=== PATIENT | female | born 1975 | race Caucasian/White ===

== ENCOUNTER 2019-03-07 09:40 | Observation (INO) | payer OTHER ==
--- NOTE | 2019-03-07 10:01 | ER Document Report ---
ED Medical Screen (RME) - General Chief Complaint: Abnormal Lab Results Stated Complaint: ABNORMAL LABS Time Seen by Provider: 03/07/19 09:48 Mode of Arrival: Ambulatory Information source: Patient Notes: Patient presents complaining of low hemoglobin. Patient states she was at an urgent care yesterday and was told her hemoglobin was 5.9. Patient is currently on her menstrual cycle and does report heavy menses. Patient also reports dark stools and a previous history of bleeding ulcer although is uncertain exactly where the ulcer is located. Patient states that she had an EGD 2 years ago. Patient states that she does take daily BC powder for her pain symptoms. Patient does report occasional chest pain although denies any chest pain at this time. Patient does report some shortness of breath. I have greeted and performed a rapid initial assessment of this patient. A comprehensive ED assessment and evaluation of the patient, analysis of test results and completion of the medical decision making process will be conducted by additional ED providers. TRAVEL OUTSIDE OF THE [place] IN LAST 30 DAYS: No - Related Data Allergies/Adverse Reactions: nitrofurantoin [From Macrodantin] Allergy (Verified 03/07/19 09:45) Past Medical History - Social History Chew tobacco use (# tins/day): No Frequency of alcohol use: Social Drug Abuse: None Physical Exam - Vital signs Vitals: Temp Pulse Resp BP Pulse Ox 99.0 F 96 20 128/53 H 96 03/07/19 09:47 03/07/19 09:47 03/07/19 09:47 03/07/19 09:47 03/07/19 09:47 - General General appearance: Appears well, Alert Notes: Pale, respirations unlabored Course - Vital Signs Vital signs: Temp Pulse Resp BP Pulse Ox 99.0 F 96 20 128/53 H 96 03/07/19 09:47 03/07/19 09:47 03/07/19 09:47 03/07/19 09:47 03/07/19 09:47
[2019-03-07] MEDS ORDERED: NORMAL SALINE 1000 ML 1,000 ML IV ONE (10:24)
[2019-03-07] MEDS ORDERED: PANTOPRAZOLE SODIUM 40 MG VIAL IV ONE (10:25)
[2019-03-07 10:31] LABS: ABSOLUTE BASOPHILS # (AUTO) 0.1 10^3/uL (0.0-0.2); ABSOLUTE EOSINOPHILS # (AUTO) 0.2 10^3/uL (0.0-0.6); ABSOLUTE LYMPHOCYTES (AUTO) 1.3 10^3/uL (0.5-4.7); ABSOLUTE MONOCYTES (AUTO) 0.6 10^3/uL (0.1-1.4); ABSOLUTE NEUT (AUTO) 4.3 10^3/uL (1.7-8.2); BASOPHILS % (AUTO) 1.4 % (0-2); EOSINOPHILS % (AUTO) 2.5 % (0-6); HEMATOCRIT 19.9 % (36.0-47.0); LYMPHOCYTES % (AUTO) 20.4 % (13-45); MEAN CORPUSCULAR HEMOGLOBIN 16.4 pg (27.0-33.4); MEAN CORPUSCULAR HGB CONC 27.7 g/dL (32.0-36.0); MONOCYTES % (AUTO) 8.7 % (3-13); PLATELET COUNT 314 10^3/uL (150-450); RED BLOOD COUNT 3.37 10^6/uL (3.72-5.28); RED CELL DISTRIBUTION WIDTH 20.9 % (11.5-14.0); TOTAL CELLS COUNTED % (AUTO) 100 %; WHITE BLOOD COUNT 6.4 10^3/uL (4.0-10.5)
[2019-03-07 10:36] LABS: HEMOGLOBIN 5.5 g/dL (12.0-15.5)
[2019-03-07 10:39] LABS: INTERNATIONAL RATION (INR) 1.09; PROTHROMBIN TIME 14.1 SEC (11.4-15.4)
[2019-03-07 10:40] LABS: PARTIAL THROMBOPLASTIN TIME 29.9 SEC (23.5-35.8)
[2019-03-07 10:53] LABS: ALKALINE PHOSPHATASE 59 U/L (38-126); ANION GAP 8 (5-19); ASPARTATE AMINO TRANSFERASE 25 U/L (14-36); BILIRUBIN,DIRECT 0.1 mg/dL (0.0-0.4); BILIRUBIN,TOTAL 0.3 mg/dL (0.2-1.3); BLOOD UREA NITROGEN 11 mg/dL (7-20); CALCIUM 8.8 mg/dL (8.4-10.2); CARBON DIOXIDE 24 mmol/L (22-30); CHLORIDE 107 mmol/L (98-107); GLUCOSE 95 mg/dL (75-110); POTASSIUM 4.2 mmol/L (3.6-5.0); TOTAL PROTEIN 7.5 g/dL (6.3-8.2)
[2019-03-07 10:55] LABS: ANISOCYTOSIS 2+; PLATELET LARGE PRESENT; POIKILOCYTOSIS SLIGHT; POLYCHROMASIA SLIGHT; STOMATOCYTES SLIGHT; TEAR DROP CELLS SLIGHT
[2019-03-07 10:56] LABS: MEAN CORPUSCULAR VOLUME 59 fl (80-97); PLATELET COMMENT ADEQUATE
[2019-03-07] MEDS ORDERED: NORMAL SALINE 250 ML IV PRN (11:06)
[2019-03-07] MEDS ORDERED: ACETAMINOPHEN 325 MG TABLET PO ONE (11:42)
--- NOTE | 2019-03-07 12:02 | ER Document Report ---
ED General - General Chief Complaint: Abnormal Lab Results Stated Complaint: ABNORMAL LABS Time Seen by Provider: 03/07/19 09:48 Primary Care Provider: DEMI NICOLE MD [Primary Care Provider] - Follow up as needed Mode of Arrival: Ambulatory TRAVEL OUTSIDE OF THE [place] IN LAST 30 DAYS: No - HPI Notes: Patient presents complaining of weakness. His weakness is generalized. Is worse with exertion and better with rest. It does radiate throughout her body. She states she has a history of anemia and has had to be transfused in the past. Last time was 2 years ago. This was secondary to "bleeding ulcers". This was at another hospital. She states over the last several weeks she has been feeling weaker and she went to the urgent care. They obtained laboratories there and found her to have a hemoglobin of 5.9 today referred her here to the emergency department. She also states she has heavy menstrual cycles but does not take any medications for this. She states lately she is also noticed that her stools have been dark. No syncope or near syncope. The symptoms have been constant. They are moderate in intensity. - Related Data Allergies/Adverse Reactions: nitrofurantoin [From Macrodantin] Allergy (Verified 03/07/19 09:45) Past Medical History - General Information source: Patient - Social History Smoking Status: Current Every Day Smoker Chew tobacco use (# tins/day): No Frequency of alcohol use: Social Drug Abuse: None Family History: Reviewed & Not Pertinent Patient has suicidal ideation: No Patient has homicidal ideation: No Review of Systems - Review of Systems Constitutional: Malaise, Weakness Cardiovascular: denies: Chest pain, Palpitations Respiratory: denies: Cough, Short of breath Gastrointestinal: denies: Diarrhea, Vomiting -: Yes All other systems reviewed and negative Physical Exam - Vital signs Vitals: Temp Pulse Resp BP Pulse Ox 99.0 F 96 20 128/53 H 96 03/07/19 09:47 03/07/19 09:47 03/07/19 09:47 03/07/19 09:47 03/07/19 09:47 Interpretation: Normal - General General appearance: Appears well, Alert - HEENT Head: Normocephalic, Atraumatic Eyes: Normal Pupils: PERRL - Respiratory Respiratory status: No respiratory distress Chest status: Nontender Breath sounds: Normal Chest palpation: Normal - Cardiovascular Rhythm: Regular Heart sounds: Normal auscultation Murmur: No - Abdominal Inspection: Normal Distension: No distension Bowel sounds: Normal Tenderness: Nontender Organomegaly: No organomegaly - Rectal Stool: Heme negative - per nurse who performed in room - Back Back: Normal, Nontender - Extremities General upper extremity: Normal inspection, Nontender, Normal color, Normal ROM, Normal temperature General lower extremity: Normal inspection, Nontender, Normal color, Normal ROM, Normal temperature, Normal weight bearing. No: Antonio's sign - Neurological Neuro grossly intact: Yes Cognition: Normal Orientation: AAOx4 Newman Coma Scale Eye Opening: Spontaneous Newman Coma Scale Verbal: Oriented Iris Coma Scale Motor: Obeys Commands Iris Coma Scale Total: 15 Speech: Normal Motor strength normal: LUE, RUE, LLE, RLE Sensory: Normal - Psychological Associated symptoms: Normal affect, Normal mood - Skin Skin Temperature: Warm Skin Moisture: Dry Skin Color: Pale Course - Vital Signs Vital signs: Temp Pulse Resp BP Pulse Ox 98.4 F 96 20 128/53 H 100 03/07/19 11:47 03/07/19 09:47 03/07/19 09:47 03/07/19 09:47 03/07/19 10:25 - Laboratory Result Diagrams: 03/07/19 10:10 03/07/19 10:10 Laboratory results interpreted by me: 03/07/19 03/07/19 10:10 10:10 RBC 3.37 L Hgb 5.5 L Hct 19.9 L MCV 59 L MCH 16.4 L MCHC 27.7 L RDW 20.9 H Crossmatch See Detail - EKG Interpretation by Pa EKG shows normal: Sinus rhythm Rate: Normal - 86 Rhythm: NSR Chandler/QRS: No: Right axis deviation, Left axis deviation Discharge - Discharge Clinical Impression: Anemia Qualifiers: Anemia type: iron deficiency Iron deficiency anemia type: chronic blood loss Qualified Code(s): D50.0 - Iron deficiency anemia secondary to blood loss (chronic) Condition: Fair Disposition: ADMITTED INPATIENT Admitting Provider: Lucita (Hospitalist) - [facility] admission Unit Admitted: Medical Floor Referrals: DEMI NICOLE MD [Primary Care Provider] - Follow up as needed
[2019-03-07] MEDS ORDERED: ALBUTEROL SULFATE 0.083% NEB 2.5 MG/3 ML AMPUL NEB PRN (13:47)
[2019-03-07] MEDS ORDERED: ACETAMINOPHEN 325 MG TABLET PO PRN (13:47)
[2019-03-07] MEDS ORDERED: MAG HYDROX/AL HYDROX/SIMETH SUSP 30 ML UDCUP PO PRN (13:56)
--- NOTE | 2019-03-07 14:10 | RADIOLOGY REPORT (SQ) ---
EXAM DESCRIPTION: CHEST 2 VIEWS COMPLETED DATE/TIME: 03/07/2019 1:52 pm REASON FOR STUDY: sob COMPARISON: None. EXAM PARAMETERS: NUMBER OF VIEWS: two views TECHNIQUE: Digital Frontal and Lateral radiographic views of the chest acquired. RADIATION DOSE: NA LIMITATIONS: none FINDINGS: LUNGS AND PLEURA: No opacities, masses or pneumothorax. No pleural effusion. MEDIASTINUM AND HILAR STRUCTURES: No masses or contour abnormalities. HEART AND VASCULAR STRUCTURES: Heart normal size. No evidence for failure. BONES: No acute findings. HARDWARE: None in the chest. OTHER: No other significant finding. IMPRESSION: NO ACUTE RADIOGRAPHIC FINDING IN THE CHEST. TECHNICAL DOCUMENTATION: JOB ID: [id number] [employer]- All Rights Reserved Reading location - IP/workstation name: [email or web address]
[2019-03-07] MEDS: ONDANSETRON HCL INJ/PF 4 MG/2 ML SDV IV PRN ×2 (14:31→19:38)
[2019-03-07] MEDS ORDERED: BUTALB/ACETAMINOPHEN/CAFFEINE 1 TAB EACH PO PRN (17:18)
[2019-03-07] MEDS ORDERED: NICOTINE 21 MG/24 HR PATCH.TD24 TD PRN (17:21)
--- NOTE | 2019-03-07 17:28 | PDOC H&P ---
History of Present Illness Admission Date/PCP: 03/07/19 12:07 DEMI NICOLE MD Patient complains of: Abn lab result per PCP History of Present Illness: GASTON SUN is a 43 year old female with limited past medical history secondary to poor healthcare utilization but known to have GERD and tobacco dependence who presented from her primary care provider's office today with a report of abnormal laboratory evaluation. Evaluation in emergency department demonstrated stable vital signs, however, patient was found to have a hemoglobin of 5.5 (5.9 at PCPs office last week), unremarkable coags, chemistry, and negative occult stool. EKG demonstrated sinus rhythm and chest x-ray was benign. Patient reports that she has a new patient appointment with gastroenterology scheduled for 03/19. She does admit to frequent BC powder use. She is provided IV fluids and is ordered 2 units PRBC; referred to the hospitalist service for admission and management of the above-stated complaints and findings. Past Medical History Cardiac Medical History: Reports: None Pulmonary Medical History: Reports: None EENT Medical History: Reports: None Neurological Medical History: Reports: None Endocrine Medical History: Reports: None Renal/ Medical History: Reports: None Malignancy Medical History: Reports: None GI Medical History: Reports: Gastroesophageal Reflux Disease, Peptic Ulcer Disease Musculoskeltal Medical History: Reports: Arthritis Skin Medical History: Reports: None Psychiatric Medical History: Reports: Tobacco Dependency Traumatic Medical History: Reports: None Hematology: Reports: Anemia Infectious Medical History: Reports: None Past Surgical History Past Surgical History: Reports: None Social History Information Source: Patient Lives with: Spouse/Significant other Smoking Status: Current Every Day Smoker Cigarettes Packs Per Day: 1 Electronic Cigarette use?: No Frequency of Alcohol Use: Rare Hx Recreational Drug Use: No Drugs: None Hx Prescription Drug Abuse: No - Advance Directive Resuscitation Status: Full Code Surrogate healthcare decision maker:: The patient's significant other, Socorro Urban, Family History Family History: Reviewed & Not Pertinent Parental Family History Reviewed: Yes Children Family History Reviewed: Yes Sibling(s) Family History Reviewed.: Yes Medication/Allergy Home Medications: Aspirin/Caffeine [Bc Powder Packet] 1 pkt PO DAILY PRN 03/07/19 Fluticasone Propionate [Flonase Nasal Logan 50 Mcg/Logan 16 gm] 2 sprays NASL Q12 03/07/19 Omeprazole Magnesium [Prilosec Otc] 40 mg PO BID 03/07/19 Allergies/Adverse Reactions: nitrofurantoin [From Macrodantin] Allergy (Verified 03/07/19 09:45) Review of Systems Constitutional: PRESENT: fatigue, headache(s). ABSENT: chills, fever(s), weight gain, weight loss Eyes: ABSENT: visual disturbances Ears: ABSENT: hearing changes Cardiovascular: ABSENT: chest pain, dyspnea on exertion, edema, orthropnea, palpitations Respiratory: PRESENT: dyspnea. ABSENT: cough, hemoptysis Gastrointestinal: ABSENT: abdominal pain, constipation, diarrhea, hematemesis, hematochezia, nausea, vomiting Genitourinary: ABSENT: dysuria, hematuria Musculoskeletal: ABSENT: joint swelling Integumentary: ABSENT: rash, wounds Neurological: ABSENT: abnormal gait, abnormal speech, confusion, dizziness, fo shanique weakness, syncope Psychiatric: ABSENT: anxiety, depression, homidical ideation, suicidal ideation Endocrine: ABSENT: cold intolerance, heat intolerance, menstrual abnormalities, polydipsia, polyuria Hematologic/Lymphatic: ABSENT: easy bleeding, easy bruising Physical Exam Vital Signs: Temp Pulse Resp BP Pulse Ox 98.3 F 68 18 102/84 100 03/07/19 16:01 03/07/19 17:09 03/07/19 16:09 03/07/19 16:09 03/07/19 16:09 Intake & Output 03/06/19 03/07/19 03/08/19 06:59 06:59 06:59 Intake Total 1300 Balance 1300 Weight 66.9 kg General appearance: PRESENT: no acute distress, cooperative, well-developed, well-nourished Head exam: PRESENT: atraumatic, normocephalic Eye exam: PRESENT: conjunctiva pink, EOMI, PERRLA. ABSENT: scleral icterus Ear exam: PRESENT: normal external ear exam Mouth exam: PRESENT: moist, tongue midline Neck exam: ABSENT: carotid bruit, JVD, lymphadenopathy, thyromegaly Respiratory exam: PRESENT: clear to auscultation peg, symmetrical, unlabored. ABSENT: rales, rhonchi, wheezes Cardiovascular exam: PRESENT: RRR, +S1, +S2. ABSENT: diastolic murmur, rubs, systolic murmur Pulses: PRESENT: normal dorsalis pedis pul Vascular exam: PRESENT: normal capillary refill GI/Abdominal exam: PRESENT: normal bowel sounds, soft. ABSENT: distended, guarding, mass, organolmegaly, rebound, tenderness Rectal exam: PRESENT: heme (-) stool - Per ED provider Extremities exam: PRESENT: full ROM. ABSENT: calf tenderness, clubbing, pedal edema Neurological exam: PRESENT: alert, awake, oriented to person, oriented to place, oriented to time, oriented to situation, CN II-XII grossly intact. ABSENT: motor sensory deficit Psychiatric exam: PRESENT: appropriate affect, normal mood. ABSENT: homicidal ideation, suicidal ideation Skin exam: PRESENT: dry, intact, warm. ABSENT: cyanosis, rash Results Laboratory Results: 03/07/19 10:10 03/07/19 10:10 03/07/19 03/07/19 03/07/19 10:10 10:10 10:10 WBC 6.4 RBC 3.37 L Hgb 5.5 L Hct 19.9 L MCV 59 L MCH 16.4 L MCHC 27.7 L RDW 20.9 H Plt Count 314 Seg Neutrophils % 67.0 Sodium 139.1 Potassium 4.2 Chloride 107 Carbon Dioxide 24 Anion Gap 8 BUN 11 Creatinine 0.70 Est GFR ( Amer) > 60 Glucose 95 Calcium 8.8 Total Bilirubin 0.3 AST 25 Alkaline Phosphatase 59 Total Protein 7.5 Albumin 4.0 Lipase 151.9 Serum HCG, Qual NEGATIVE Blood Type Antibody Screen 03/07/19 10:10 WBC RBC Hgb Hct MCV MCH MCHC RDW Plt Count Seg Neutrophils % Sodium Potassium Chloride Carbon Dioxide Anion Gap BUN Creatinine Est GFR ( Amer) Glucose Calcium Total Bilirubin AST Alkaline Phosphatase Total Protein Albumin Lipase Serum HCG, Qual Blood Type A POSITIVE Antibody Screen NEGATIVE 03/07/19 10:10 Troponin I < 0.012 Impressions: Chest X-Ray 03/07/19 13:41 IMPRESSION: NO ACUTE RADIOGRAPHIC FINDING IN THE CHEST. Assessment and Plan - Diagnosis (1) Anemia Qualifiers: Anemia type: iron deficiency Iron deficiency anemia type: chronic blood loss Qualified Code(s): D50.0 - Iron deficiency anemia secondary to blood loss (chronic) Is this a current diagnosis for this admission?: Yes Plan: Hgb 5.5 Occult stool negative. Patient with minimal symptoms, not tachycardic. Likely slow developing/chronic anemia. Transfused 2 units PRBC. Start daily multivitamin. Anemia panel pending. (2) GERD (gastroesophageal reflux disease) Is this a current diagnosis for this admission?: Yes Plan: Continue daily PPI. Follow-up with technical aide as previously scheduled on 03/19/19. (3) Hypothyroidism Qualifiers: Hypothyroidism type: unspecified Qualified Code(s): E03.9 - Hypothyroidism, unspecified Is this a current diagnosis for this admission?: Yes Plan: Patient presented with lab results from primary care provider demonstrating TSH of 93. Patient states this is a new finding; though admittedly has not seen a provider in several years. She is started on levothyroxine 100 mcg daily. PCP follow-up with repeat laboratory evaluation 6 to 8 weeks. (4) Tobacco abuse Is this a current diagnosis for this admission?: Yes Plan: Smoking cessation encouraged. Nicotine replacement therapies provided. - Time Time Spent with patient: 35 or more minutes Medications reviewed and adjusted accordingly: Yes Anticipated discharge: Home Within: within 24 hours
[2019-03-07 17:31] LABS: ABSOLUTE RETICS # 0.056 10^6/uL (0.028-0.122); RETICULOCYTE COUNT (AUTO) 1.66 % (0.66-2.85)
[2019-03-07 18:31] LABS: FERRITIN 2.87 ng/mL (6.2-137.0)
[2019-03-07] MEDS: PANTOPRAZOLE SODIUM 40 MG TABLET.DR PO SCH (18:52)
--- NOTE | 2019-03-07 19:00 | EKG REPORT ---
SEVERITY:- NORMAL ECG - SINUS RHYTHM : Confirmed by: Janett Buck MD 07-Mar-2019 18:59:44
[2019-03-07 19:01] LABS: FOLATE 8.53 ng/mL (>2.76)
[2019-03-07] MEDS ORDERED: LIDOCAINE 2% VISCOUS SOLN 20 ML UDCUP PO ONE (19:30)
[2019-03-07] MEDS ORDERED: METOCLOPRAMIDE HCL ORAL SOLN 10 MG/10 ML UDCUP PO ONE (19:30)
[2019-03-07] MEDS ORDERED: MAG HYDROX/AL HYDROX/SIMETH SUSP 30 ML UDCUP PO ONE (19:30)
[2019-03-07] MEDS: NORMAL SALINE 1000 ML 1,000 ML IV PRN (19:39)
[2019-03-08] MEDS: PANTOPRAZOLE SODIUM 40 MG TABLET.DR PO SCH (05:01)
[2019-03-08] MEDS: NORMAL SALINE 1000 ML 1,000 ML IV PRN (05:03)
[2019-03-08] MEDS ORDERED: LEVOTHYROXINE SODIUM 0.1 MG TABLET PO SCH (06:00)
[2019-03-08 06:33] LABS: HEMATOCRIT 26.9 % (36.0-47.0); MEAN CORPUSCULAR HGB CONC 30.3 g/dL (32.0-36.0); PLATELET COUNT 249 10^3/uL (150-450); RED BLOOD COUNT 4.06 10^6/uL (3.72-5.28); RED CELL DISTRIBUTION WIDTH 25.8 % (11.5-14.0); WHITE BLOOD COUNT 7.4 10^3/uL (4.0-10.5)
[2019-03-08 06:46] LABS: ANION GAP 7 (5-19); BLOOD UREA NITROGEN 8 mg/dL (7-20); CALCIUM 8.3 mg/dL (8.4-10.2); CARBON DIOXIDE 23 mmol/L (22-30); CHLORIDE 113 mmol/L (98-107); GLUCOSE 89 mg/dL (75-110); POTASSIUM 4.8 mmol/L (3.6-5.0)
[2019-03-08 06:54] LABS: HEMOGLOBIN 8.1 g/dL (12.0-15.5)
[2019-03-08 06:55] LABS: MEAN CORPUSCULAR VOLUME 66 fl (80-97)
[2019-03-08] MEDS ORDERED: IRON SUCROSE COMPLEX 100 MG in NORMAL SALINE 100 ML IV ONE (08:00)
[2019-03-08] MEDS ORDERED: IRON SUCROSE COMPLEX INJ/PF 100 MG/5 ML SDV IV ONE (09:00)
[2019-03-08] MEDS ORDERED: DOCUSATE SODIUM 100 MG CAPSULE PO SCH (10:00)
[2019-03-08] MEDS ORDERED: FERUMOXYTOL 510 MG in NORMAL SALINE 100 ML IV ONE (10:30)
[2019-03-08 11:59] VITALS: BP 113/59
[2019-03-08 13:48] LABS: PATH REVIEW PATHOLOGIST REVIEWED
--- NOTE | 2019-03-09 13:02 | PDOC DISCHARGE SUMMARY ---
Impression - Admit/DC Date/PCP Admission Date/Primary Care Provider: 03/07/19 12:07 DEMI NICOLE MD Discharge Date: 03/08/19 - Discharge Diagnosis (1) Anemia Is this a current diagnosis for this admission?: Yes (2) GERD (gastroesophageal reflux disease) Is this a current diagnosis for this admission?: Yes (3) Hypothyroidism Is this a current diagnosis for this admission?: Yes (4) Tobacco abuse Is this a current diagnosis for this admission?: Yes - Additional Information Resuscitation Status: Full Code Discharge Diet: Regular Discharge Activity: Activity As Tolerated, Balance Activity w/Rest Referrals: GAY ESTRADA MD [ACTIVE STAFF] - 03/23/19 10:45 am MARIA EUGENIA STORY MD [COMMUNITY BASED STAFF] - 03/15/19 3:00 pm Prescriptions: Butalb/Acetaminophen/Caffeine [Fioricet (50-325-40 mg) Tablet] 1 tab PO Q4HP PRN #12 each PRN Reason: For Headache Nicotine [Nicoderm 21 mg/24 Hr Transderm Patch] 1 each TD DAILYP PRN #30 patch.td24 PRN Reason: Levothyroxine Sodium [Synthroid 0.1 mg Tablet] 0.1 mg PO Q6AM #30 tablet Mv-Min/Iron/Folic/Calcium/Vitk [Women's Multivitamin Tablet] 1 each PO DAILY #90 tablet Home Medications: Fluticasone Propionate [Flonase Nasal Taberg 50 Mcg/Taberg 16 gm] 2 sprays NASL Q12 03/07/19 Omeprazole Magnesium [Prilosec Otc] 40 mg PO BID 03/07/19 Acetaminophen [Tylenol 325 mg Tablet] 650 mg PO Q4HP PRN tablet 03/08/19 Butalb/Acetaminophen/Caffeine [Fioricet (50-325-40 mg) Tablet] 1 tab PO Q4HP PRN #12 each 03/08/19 Levothyroxine Sodium [Synthroid 0.1 mg Tablet] 0.1 mg PO Q6AM #30 tablet 03/08/19 Mv-Min/Iron/Folic/Calcium/Vitk [Women's Multivitamin Tablet] 1 each PO DAILY #90 tablet 03/08/19 Nicotine [Nicoderm 21 mg/24 Hr Transderm Patch] 1 each TD DAILYP PRN #30 patch.td24 03/08/19 History of Present Illiness History of Present Illness: GASTON SUN is a 43 year old female with limited past medical history secondary to poor healthcare utilization but known to have GERD and tobacco dependence who presented from her primary care provider's office today with a report of abnormal laboratory evaluation. Evaluation in emergency department demonstrated stable vital signs, however, patient was found to have a hemoglobin of 5.5 (5.9 at PCPs office last week), unremarkable coags, chemistry, and negative occult stool. EKG demonstrated sinus rhythm and chest x-ray was benign. Patient reports that she has a new patient appointment with gastroenterology scheduled for 03/19. She does admit to frequent BC powder use. She is provided IV fluids and is ordered 2 units PRBC; referred to the hospitalist service for admission and management of the above-stated complaints and findings. Hospital Course Hospital Course: The patient was admitted to the medical floor and monitored on continuous cardiac telemetry. She received 2 units of packed red blood cells. Anemia panel revealed iron deficiency anemia. Discussed with Dr. Estrada who advised to provide Feraheme prior to discharge. Based on laboratory results were presented from her primary care office, the pat ient was started on levothyroxine 100 mcg. She was informed that her PCP will require additional lab work in 6 to 8 weeks to adjust dosing. The following morning, the patient was asymptomatic, ambulatory on room air, without increased work of breathing, dizziness, or weakness. In fact, the patient reports that she is feeling significantly better. She is already scheduled an appointment with gastroenterology to follow-up on her peptic ulcer disease. She is scheduled appointment with Dr. Estrada for March 23. She is instructed to follow-up with her primary care provider within 1 week. The patient is discharged home in stable condition. Physical Exam Vital Signs: Temp Pulse Resp BP Pulse Ox 98.2 F 73 16 113/59 L 98 03/08/19 11:57 03/08/19 11:57 03/08/19 11:57 03/08/19 11:57 03/08/19 11:57 Intake & Output 03/08/19 03/09/19 03/10/19 06:59 06:59 06:59 Intake Total 3300 Balance 3300 Weight 71.94 kg General appearance: PRESENT: no acute distress, cooperative, obese, well- developed, well-nourished Head exam: PRESENT: atraumatic, normocephalic Eye exam: PRESENT: conjunctiva pink, EOMI, PERRLA. ABSENT: scleral icterus Ear exam: PRESENT: normal external ear exam Mouth exam: PRESENT: moist, tongue midline Respiratory exam: PRESENT: clear to auscultation peg. ABSENT: rales, rhonchi, wheezes Cardiovascular exam: PRESENT: RRR. ABSENT: diastolic murmur, rubs, systolic murmur Pulses: PRESENT: normal dorsalis pedis pul Vascular exam: PRESENT: normal capillary refill GI/Abdominal exam: PRESENT: normal bowel sounds, soft. ABSENT: distended, guarding, mass, organolmegaly, rebound, tenderness Rectal exam: PRESENT: heme (-) stool Extremities exam: PRESENT: full ROM. ABSENT: calf tenderness, clubbing, pedal edema Musculoskeletal exam: PRESENT: ambulatory Neurological exam: PRESENT: alert, awake, oriented to person, oriented to place, oriented to time, oriented to situation, CN II-XII grossly intact. ABSENT: motor sensory deficit Psychiatric exam: PRESENT: appropriate affect, normal mood. ABSENT: homicidal ideation, suicidal ideation Skin exam: PRESENT: dry, intact, warm. ABSENT: cyanosis, rash Results Laboratory Results: WBC 7.4 10^3/uL (4.0-10.5) 03/08/19 05:59 RBC 4.06 10^6/uL (3.72-5.28) 03/08/19 05:59 Hgb 8.1 g/dL (12.0-15.5) L D 03/08/19 05:59 Hct 26.9 % (36.0-47.0) L 03/08/19 05:59 MCV 66 fl (80-97) L D 03/08/19 05:59 MCH 20.0 pg (27.0-33.4) L 03/08/19 05:59 MCHC 30.3 g/dL (32.0-36.0) L 03/08/19 05:59 RDW 25.8 % (11.5-14.0) H 03/08/19 05:59 Plt Count 249 10^3/uL (150-450) 03/08/19 05:59 Lymph % (Auto) 20.4 % (13-45) 03/07/19 10:10 [place] % (Auto) 8.7 % (3-13) 03/07/19 10:10 Eos % (Auto) 2.5 % (0-6) 03/07/19 10:10 Baso % (Auto) 1.4 % (0-2) 03/07/19 10:10 Reticulocyte # 0.056 10^6/uL (0.028-0.122) 03/07/19 10:10 Absolute Neuts (auto) 4.3 10^3/uL (1.7-8.2) 03/07/19 10:10 Absolute Lymphs (auto) 1.3 10^3/uL (0.5-4.7) 03/07/19 10:10 Absolute Monos (auto) 0.6 10^3/uL (0.1-1.4) 03/07/19 10:10 Absolute Eos (auto) 0.2 10^3/uL (0.0-0.6) 03/07/19 10:10 Absolute Basos (auto) 0.1 10^3/uL (0.0-0.2) 03/07/19 10:10 Seg Neutrophils % 67.0 % (42-78) 03/07/19 10:10 Large Platelets PRESENT 03/07/19 10:10 Platelet Comment ADEQUATE 03/07/19 10:10 Polychromasia SLIGHT 03/07/19 10:10 Poikilocytosis SLIGHT 03/07/19 10:10 Anisocytosis 2+ 03/07/19 10:10 Microcytosis 4+ 03/07/19 10:10 Tear Drop Cells SLIGHT 03/07/19 10:10 Stomatocytes SLIGHT 03/07/19 10:10 Retic Count (auto) 1.66 % (0.66-2.85) 03/07/19 10:10 PT 14.1 SEC (11.4-15.4) 03/07/19 10:10 INR 1.09 03/07/19 10:10 APTT 29.9 SEC (23.5-35.8) 03/07/19 10:10 Sodium 142.6 mmol/L (137-145) 03/08/19 05:59 Potassium 4.8 mmol/L (3.6-5.0) 03/08/19 05:59 Chloride 113 mmol/L (98-107) H 03/08/19 05:59 Carbon Dioxide 23 mmol/L (22-30) 03/08/19 05:59 Anion Gap 7 (5-19) 03/08/19 05:59 BUN 8 mg/dL (7-20) 03/08/19 05:59 Creatinine 0.81 mg/dL (0.52-1.25) 03/08/19 05:59 Est GFR ( Amer) > 60 (>60) 03/08/19 05:59 Est GFR (MDRD) Non-Af > 60 (>60) 03/08/19 05:59 Glucose 89 mg/dL (75-110) 03/08/19 05:59 Calcium 8.3 mg/dL (8.4-10.2) L 03/08/19 05:59 Iron 24.0 ug/dL (37-170) L 03/07/19 10:10 TIBC 476 ug/dL (250-450) H 03/07/19 10:10 % Saturation 5 % 03/07/19 10:10 Ferritin 2.87 ng/mL (6.2-137.0) L 03/07/19 10:10 Total Bilirubin 0.3 mg/dL (0.2-1.3) 03/07/19 10:10 Direct Bilirubin 0.1 mg/dL (0.0-0.4) 03/07/19 10:10 Neonat Total Bilirubin Not Reportable 03/07/19 10:10 Neonat Direct Bilirubin Not Reportable 03/07/19 10:10 Neonat Indirect Bili Not Reportable 03/07/19 10:10 AST 25 U/L (14-36) 03/07/19 10:10 ALT 16 U/L (<35) 03/07/19 10:10 Alkaline Phosphatase 59 U/L (38-126) 03/07/19 10:10 Troponin I < 0.012 ng/mL 03/07/19 10:10 Total Protein 7.5 g/dL (6.3-8.2) 03/07/19 10:10 Albumin 4.0 g/dL (3.5-5.0) 03/07/19 10:10 Lipase 151.9 U/L (23-300) 03/07/19 10:10 Vitamin B12 382.0 pg/mL (239-931) 03/07/19 10:10 Folate 8.53 ng/mL (>2.76) 03/07/19 10:10 Serum HCG, Qual NEGATIVE (NEGATIVE) 03/07/19 10:10 Slides for Path Review PATHOLOGIST REVIEWED 03/07/19 10:10 Blood Type A POSITIVE 03/07/19 10:10 Blood Type Confirm A POSITIVE 03/07/19 11:57 Antibody Screen NEGATIVE 03/07/19 10:10 Crossmatch See Detail 03/07/19 10:10 03/07/19 10:10 Troponin I < 0.012 Impressions: Chest X-Ray 03/07/19 13:41 IMPRESSION: NO ACUTE RADIOGRAPHIC FINDING IN THE CHEST. Plan Plan of Treatment: Discharge to home with self-care. She is advised to follow-up with her primary care provider within 1 week. She has been made a follow-up appointment with hematology, Dr. Estrada, for March 23. The patient already has an appointment scheduled with gastroenterology for March 19 that was made prior to her admission. She is instructed to take her medications as prescribed and to start a daily multivitamin. She is encouraged to return to the emergency department as needed for concerning symptoms. Stroke Is this a Stroke Patient?: No Acute Heart Failure - Is this a Heart Failure Patient?: No
== END 2019-03-08 12:25 | disposition home or self-care (01) ==
LOC: ER 09:40 → INTOOBSV 12:07 → EH 12:07 → 3S 16:26
PROVIDERS: ADMIT Family Medicine; ATTEND Family Medicine
PROC: 30233N1 Transfusion of Nonautologous Red Blood Cells into Peripheral Vein, Percutaneous Approach (ICD-10-PCS; principal; 2019-03-07)
DX: D50.0 Iron deficiency anemia secondary to blood loss (chronic) (principal); K21.9 Gastro-esophageal reflux disease without esophagitis; E03.9 Hypothyroidism, unspecified; F17.210 Nicotine dependence, cigarettes, uncomplicated; K27.9 Peptic ulcer, site unspecified, unspecified as acute or chronic, without hemorrhage or perforation; R51 Headache; E66.9 Obesity, unspecified; R06.00 Dyspnea, unspecified; R19.5 Other fecal abnormalities; Z79.899 Other long term (current) drug therapy; Z79.82 Long term (current) use of aspirin
CPT/HCPCS: 93005; 99284; 96361; 96374; 86900; 86901; 36415 ×2; 36430; 86850; 82607; 82728; 82746; 83540; 83550; 83690; 84703; 85025; 85027; 85610; 85730; 85045; 80048; 80053; 84484; 86920; 71046; 93010; P9016; Q0138; J3490 ×3; S0164; J2405; J7050 ×2; J7030 ×2; C9113; G0378